=== PATIENT | female | born 1935 | race Asian ===

== ENCOUNTER 2017-09-14 16:04 | Inpatient (IN) | payer OTHER | END 2017-10-13 09:07 | disposition still patient (30) | LOC: PAVB 16:04 | PROVIDERS: ADMIT Internal Medicine ==

== ENCOUNTER 2017-09-15 06:50 | Outpatient (CLI) | payer OTHER ==
[2017-09-15 08:28] LABS: PLATELET COUNT 160 K/uL (152-353)
[2017-09-15 08:44] LABS: POTASSIUM 4.4 mmol/L (3.6-5.2)
== END 2017-09-15 22:52 | disposition home or self-care (01) ==
LOC: LAB 06:50
PROVIDERS: Internal Medicine
DX: R73.09 Other abnormal glucose (principal); R82.99 Other abnormal findings in urine; R79.89 Other specified abnormal findings of blood chemistry; D64.89 Other specified anemias; E11.9 Type 2 diabetes mellitus without complications; N39.0 Urinary tract infection, site not specified
CPT/HCPCS: 80053; 80061; 81000; 82542; 83036; 83540; 84443; 85027; 87077; 87081; 87088; 87186

== ENCOUNTER 2017-10-02 13:57 | Outpatient (CLI) | payer OTHER | END 2017-10-02 22:27 | disposition home or self-care (01) | LOC: RAD 13:57 | DX: R06.02 Shortness of breath (principal) ==

== ENCOUNTER 2017-10-05 14:46 | Outpatient (CLI) | payer OTHER ==
[2017-10-05 15:54] LABS: PLATELET COUNT 265 K/uL (152-353)
[2017-10-05 16:10] LABS: POTASSIUM 4.1 mmol/L (3.6-5.2)
== END 2017-10-05 22:52 | disposition home or self-care (01) ==
LOC: LAB 14:46
PROVIDERS: Internal Medicine
DX: I50.9 Heart failure, unspecified (principal)
CPT/HCPCS: 36415; 80053; 83880; 85027

== ENCOUNTER 2017-10-06 08:19 | Outpatient (CLI) | payer OTHER | END 2017-10-06 22:28 | disposition home or self-care (01) | LOC: LABW 08:19 | DX: E03.8 Other specified hypothyroidism (principal) | CPT/HCPCS: 84439 ==

== ENCOUNTER 2017-10-13 09:55 | Inpatient (IN) | payer OTHER ==
[2017-11-08] MEDS ORDERED: RISP0.25 PO (02:23)
[2017-11-08] MEDS ORDERED: POTASSIUM CHLO20 MEQ PO (02:25)
[2017-11-08] MEDS ORDERED: CALCIUM 600+D1 T10 PO (02:27)
[2017-11-08] MEDS ORDERED: CARV12.5 PO (02:27)
[2017-11-08] MEDS ORDERED: CULTURELL3 PO (02:29)
[2017-11-08] MEDS ORDERED: DONE5TAB PO (02:30)
[2017-11-08] MEDS ORDERED: IRON325 MG PO (02:31)
[2017-11-08] MEDS ORDERED: GLIP10TA55 PO (02:32)
[2017-11-08] MEDS ORDERED: FURO40TA93 PO (02:32)
[2017-11-08] MEDS ORDERED: ISORDIL5 MG PO (02:34)
[2017-11-08] MEDS ORDERED: KEPPRA1000 MG PO (02:54)
[2017-11-08] MEDS ORDERED: LEXAPRO20 MG PO (02:56)
[2017-11-08] MEDS ORDERED: PANTOPRAZOLE 40MG TA PO (02:57)
[2017-11-08] MEDS ORDERED: COZAAR100 MG PO (02:57)
[2017-11-08] MEDS ORDERED: ASCO500T18 PO (02:58)
[2017-11-08] MEDS ORDERED: METH5TAB6 PO (03:01)
[2017-11-08] MEDS ORDERED: MULTIVITAMI1 PO (03:02)
[2017-11-08] MEDS ORDERED: TYLENOL325 MG PO (03:05)
[2017-11-08] MEDS ORDERED: TRAM50TA PO (03:06)
[2017-11-08] MEDS ORDERED: DIAZEPAM10 M2 PO (03:09)
== END 2017-11-13 08:54 | disposition still patient (30) ==
LOC: PAVB 09:55
PROVIDERS: ADMIT Internal Medicine
CPT/HCPCS: 36415; 82947; 86850; 86900; 86901; 86922; P9016

== ENCOUNTER 2017-11-01 09:29 | Outpatient (CLI) | payer OTHER | END 2017-11-01 22:04 | disposition home or self-care (01) | LOC: RAD 09:29 | DX: R06.02 Shortness of breath (principal) ==

== ENCOUNTER 2017-11-03 14:10 | Outpatient (CLI) | payer OTHER ==
[2017-11-03 14:49] LABS: PLATELET COUNT 223 K/uL (152-353)
[2017-11-03 15:01] LABS: POTASSIUM 4.5 mmol/L (3.6-5.2)
== END 2017-11-03 18:21 | disposition home or self-care (01) ==
LOC: LAB 14:10
PROVIDERS: Internal Medicine
DX: R05 Cough (principal); R50.9 Fever, unspecified; R09.02 Hypoxemia
CPT/HCPCS: 36415; 80048; 85027

== ENCOUNTER 2017-11-04 14:26 | Observation (INO) | payer OTHER ==
[~2017-11-04] VITALS: Ht 177.8 cm; Wt 65.0 kg
[2017-11-04 17:59] VITALS: BP 122/60; TEMP 98.8; Ht 177.8 cm; Wt 65.0 kg
[2017-11-04 20:00] VITALS: BP 114/63; TEMP 99.1
[2017-11-05] VITALS: BP 135/84; TEMP 101.1
[2017-11-05 04:07] VITALS: BP 117/66; TEMP 100.8
--- NOTE | 2017-11-05 05:00 | NUR ---
11/05/17 0500 PT GIVEN SOME TYLENOL FOR INCREASED TEMP,PT EAT A CUP OF APPLE SAUCE AND DRUNK A CUP OF ICE WATER TOLERATED WELL.CC
[2017-11-05 05:51] LABS: PLATELET COUNT 231 K/uL (152-353)
[2017-11-05 06:06] LABS: POTASSIUM 4.2 mmol/L (3.6-5.2)
[2017-11-05 08:00] VITALS: BP 121/25; TEMP 99.1
[2017-11-05 12:00] VITALS: BP 130/29; TEMP 99.5
[2017-11-05 16:00] VITALS: BP 140/38; TEMP 100.5
[2017-11-05 20:00] VITALS: BP 104/60; TEMP 100.1
--- NOTE | 2017-11-05 23:11 | NUR ---
11/05/17 2300 BLOOD SUGAR 119.CC
[2017-11-06] VITALS: BP 114/65; TEMP 99.6
[2017-11-06 03:57] VITALS: BP 107/62; TEMP 99.1
[2017-11-06 05:17] LABS: PLATELET COUNT 195 K/uL (152-353)
[2017-11-06 05:32] LABS: POTASSIUM 4.1 mmol/L (3.6-5.2)
--- NOTE | 2017-11-06 06:43 | NUR ---
11/06/17 0630 PT HAS LOW BLOOD SUGAR THIS AM 53 ORANGE JUICE GIVEN ALONG WITH CAN GLUCERNA ALERT DRUNK ALL OF IT NAD NOTED.CC
[2017-11-06 08:00] VITALS: BP 123/80; TEMP 96.8
[2017-11-06 12:00] VITALS: BP 115/62; TEMP 97.5
--- NOTE | 2017-11-06 12:05 | NUR ---
REPORT GIVEN TO ISMAEL GENTILE RN AT [facility].
--- NOTE | 2017-11-06 14:15 | NUR ---
PATIENT'S IV REMOVED WITH CATHETER TIP INTACT. NO REDNESS OR SWELLING NOTED. PATIENT TOLERATED WELL. PATIENT'S BRIEF CHANGED AND COCCYX AREA CLEANED WITH SALINE AND DRESSED WITH 4X4'S AND AN ABD PAD. PATIENT TOLERATED WELL. PATIENT TRANSFERRED BACK TO [facility] VIA BED AT THIS TIME.
== END 2017-11-06 14:00 ==
LOC: MED/SURG 14:26
PROVIDERS: ADMIT Internal Medicine
DX: J20.9 Acute bronchitis, unspecified (principal); R50.9 Fever, unspecified; R05 Cough; D64.89 Other specified anemias; R13.19 Other dysphagia; F03.90 Unspecified dementia, unspecified severity, without behavioral disturbance, psychotic disturbance, mood disturbance, and anxiety; I25.10 Atherosclerotic heart disease of native coronary artery without angina pectoris; E11.9 Type 2 diabetes mellitus without complications; R09.02 Hypoxemia
CPT/HCPCS: 80053; 82948; 85027; 94640; 94664; 94760; 96365; 96366; 96367; 99220; G0378; G0379; J0696; J1956

== ENCOUNTER 2017-11-07 08:04 | Observation (INO) | payer OTHER ==
[~2017-11-07] VITALS: Ht 177.8 cm; Wt 68.7 kg
[2017-11-07 15:31] VITALS: BP 117/62; TEMP 99; Ht 177.8 cm; Wt 68.7 kg
[2017-11-07 16:00] VITALS: BP 158/78; TEMP 98.9
[2017-11-07 20:00] VITALS: BP 147/86; TEMP 98.6
[2017-11-08] VITALS: BP 170/86; TEMP 98.9
[2017-11-08] MEDS ORDERED: RISP0.25 PO (02:23)
[2017-11-08] MEDS ORDERED: POTASSIUM CHLO20 MEQ PO (02:25)
[2017-11-08] MEDS ORDERED: CALCIUM 600+D1 T10 PO (02:27)
[2017-11-08] MEDS ORDERED: CARV12.5 PO (02:27)
[2017-11-08] MEDS ORDERED: CULTURELL3 PO (02:29)
[2017-11-08] MEDS ORDERED: DONE5TAB PO (02:30)
[2017-11-08] MEDS ORDERED: IRON325 MG PO (02:31)
[2017-11-08] MEDS ORDERED: FURO40TA93 PO (02:32)
[2017-11-08] MEDS ORDERED: GLIP10TA55 PO (02:32)
[2017-11-08] MEDS ORDERED: ISORDIL5 MG PO (02:34)
[2017-11-08] MEDS ORDERED: KEPPRA1000 MG PO (02:54)
[2017-11-08] MEDS ORDERED: LEXAPRO20 MG PO (02:56)
[2017-11-08] MEDS ORDERED: PANTOPRAZOLE 40MG TA PO (02:57)
[2017-11-08] MEDS ORDERED: COZAAR100 MG PO (02:57)
[2017-11-08] MEDS ORDERED: ASCO500T18 PO (02:58)
[2017-11-08] MEDS ORDERED: METH5TAB6 PO (03:01)
[2017-11-08] MEDS ORDERED: MULTIVITAMI1 PO (03:02)
[2017-11-08] MEDS ORDERED: TYLENOL325 MG PO (03:05)
[2017-11-08] MEDS ORDERED: TRAM50TA PO (03:06)
[2017-11-08] MEDS ORDERED: DIAZEPAM10 M2 PO (03:09)
[2017-11-08 04:00] VITALS: BP 163/85; TEMP 98.1
[2017-11-08 06:18] LABS: PLATELET COUNT 234 K/uL (152-353)
[2017-11-08 08:00] VITALS: BP 158/91; TEMP 98.8
[2017-11-08 12:00] VITALS: BP 151/79; TEMP 98.7
[2017-11-08 16:00] VITALS: BP 151/92; TEMP 98.9
[2017-11-08 19:59] VITALS: BP 147/77; TEMP 98.1
--- NOTE | 2017-11-08 23:55 | NUR ---
PATIENT DISCHARGED TO [facility] IN SATISFACTORY CONDITION. LT HEEL BLISTER BURST DURING TRANSFER TO BED. REPORT GIVEN TO EKATERINA BARBER LPN. ALL QUESTIONS AND CONCERNS ADDRESSED.
== END 2017-11-08 23:55 ==
LOC: INF 08:04 → MED/SURG 11:14
PROVIDERS: ADMIT Internal Medicine
DX: E11.649 Type 2 diabetes mellitus with hypoglycemia without coma (principal); D64.89 Other specified anemias; R13.19 Other dysphagia; G30.8 Other Alzheimer's disease; F02.80 Dementia in other diseases classified elsewhere, unspecified severity, without behavioral disturbance, psychotic disturbance, mood disturbance, and anxiety; K21.9 Gastro-esophageal reflux disease without esophagitis; I25.10 Atherosclerotic heart disease of native coronary artery without angina pectoris
CPT/HCPCS: 36415; 36430; 82948; 85027; 86850; 86900; 86901; 86922; 96365; 96366; 96375; 99220; G0378; J1940; J7060; P9016

== ENCOUNTER 2017-11-09 04:56 | Outpatient (CLI) | payer OTHER ==
[~2017-11-09 04:56] MED LIST: ASCO500T18 PO; CALCIUM 600+D1 T10 PO; CARV12.5 PO; COZAAR100 MG PO; CULTURELL3 PO; DIAZEPAM10 M2 PO; DONE5TAB PO; FURO40TA93 PO; GLIP10TA55 PO; IRON325 MG PO; ISORDIL5 MG PO; KEPPRA1000 MG PO; LEXAPRO20 MG PO; METH5TAB6 PO; MULTIVITAMI1 PO; PANTOPRAZOLE 40MG TA PO; POTASSIUM CHLO20 MEQ PO; RISP0.25 PO; TRAM50TA PO; TYLENOL325 MG PO
== END 2017-11-09 19:11 | disposition home or self-care (01) ==
LOC: LABW 04:56
DX: E05.80 Other thyrotoxicosis without thyrotoxic crisis or storm (principal)
CPT/HCPCS: 84439; 84443; 85014; 85018

== ENCOUNTER 2017-11-12 07:34 | Day surgery (SDC) | payer OTHER | END 2017-11-12 10:45 | LOC: OR 07:34 | PROC: 0DH63UZ Insertion of Feeding Device into Stomach, Percutaneous Approach (ICD-10-PCS; principal; 2017-11-12) | PROC: 0DB68ZZ Excision of Stomach, Via Natural or Artificial Opening Endoscopic (ICD-10-PCS; 2017-11-12) | DX: R13.19 Other dysphagia (principal); R63.4 Abnormal weight loss; T17.900A Unspecified foreign body in respiratory tract, part unspecified causing asphyxiation, initial encounter; D64.9 Anemia, unspecified; F03.90 Unspecified dementia, unspecified severity, without behavioral disturbance, psychotic disturbance, mood disturbance, and anxiety | CPT/HCPCS: J2001; J2704 ==

== ENCOUNTER 2017-11-13 09:42 | Inpatient (IN) | payer OTHER ==
[2017-11-21 08:03] LABS: POTASSIUM 4.9 mmol/L (3.6-5.2)
== END 2017-12-13 14:21 | disposition still patient (30) ==
LOC: PAVB 09:42
PROVIDERS: ADMIT Internal Medicine
CPT/HCPCS: 80048

== ENCOUNTER 2017-11-17 06:15 | Outpatient (CLI) | payer OTHER | END 2017-11-17 22:17 | disposition home or self-care (01) | LOC: LAB 06:15 | PROVIDERS: Internal Medicine | DX: F03.91 Unspecified dementia, unspecified severity, with behavioral disturbance (principal); E78.4 Other hyperlipidemia | CPT/HCPCS: 82465; 83721; 84436; 84480 ==

== ENCOUNTER 2017-11-18 03:04 | Outpatient (CLI) | payer OTHER | END 2017-11-18 21:39 | disposition home or self-care (01) | LOC: LAB 03:04 | DX: K94.22 Gastrostomy infection (principal) | CPT/HCPCS: 87070; 87077; 87186; 87205 ==

== ENCOUNTER 2017-11-21 10:09 | Outpatient (CLI) | payer OTHER | END 2017-11-21 16:00 | disposition home or self-care (01) | LOC: LAB 10:09 | DX: E87.1 Hypo-osmolality and hyponatremia (principal) | CPT/HCPCS: 80048 ==

== ENCOUNTER 2017-11-22 10:46 | Outpatient (CLI) | payer OTHER | END 2017-11-22 19:11 | disposition home or self-care (01) | LOC: RAD 10:46 | DX: R05 Cough (principal); Z43.1 Encounter for attention to gastrostomy ==

== ENCOUNTER 2017-12-13 15:00 | Inpatient (IN) | payer OTHER | END 2018-01-13 08:00 | disposition still patient (30) | LOC: PAVB 15:00 | PROVIDERS: ADMIT Internal Medicine ==

== ENCOUNTER 2017-12-14 11:50 | Inpatient (IN) | payer OTHER ==
[~2017-12-14] VITALS: Ht 177.8 cm; Wt 61.7 kg
[2017-12-14 12:31] LABS: PLATELET COUNT 135 K/uL (152-353)
[2017-12-14 13:01] LABS: POTASSIUM 6.9 mmol/L (3.6-5.2)
[2017-12-14 17:42] VITALS: BP 93/63; TEMP 98; Ht 177.8 cm; Wt 61.7 kg
[2017-12-14 20:00] VITALS: BP 115/70; TEMP 98
[2017-12-15] VITALS (7 sets, daily range): BP systolic 111–134; BP diastolic 70–76; TEMP 97.9–98.5
[2017-12-15 10:25] LABS: POTASSIUM 5.6 mmol/L (3.6-5.2)
[2017-12-16 04:00] VITALS: BP 149/76; TEMP 98.1
[2017-12-16 05:30] LABS: POTASSIUM 5.2 mmol/L (3.6-5.2)
[2017-12-16 08:00] VITALS: BP 148/79; TEMP 98.9
[2017-12-16 12:00] VITALS: BP 130/76; TEMP 98.3
[2017-12-16 16:00] VITALS: BP 154/81; TEMP 98.6
[2017-12-16 20:00] VITALS: BP 152/75; TEMP 99.3
[2017-12-17] VITALS: BP 163/85; TEMP 98.7
[2017-12-17 04:00] VITALS: BP 154/77; TEMP 99.3
[2017-12-17 06:07] LABS: POTASSIUM 3.9 mmol/L (3.6-5.2)
[2017-12-17 08:00] VITALS: BP 179/77; TEMP 98.2
[2017-12-17 12:00] VITALS: BP 153/82; TEMP 98.6
[2017-12-17 16:00] VITALS: BP 140/70; TEMP 98.8
[2017-12-17 20:00] VITALS: BP 166/85; TEMP 97.8
[2017-12-18] VITALS: BP 150/82; TEMP 99
[2017-12-18 04:00] VITALS: BP 150/88; TEMP 99.3
[2017-12-18 08:00] VITALS: BP 149/86; TEMP 97.8
[2017-12-18 12:00] VITALS: BP 149/79; TEMP 99.6
== END 2017-12-18 11:12 | DRG 638 ==
LOC: LAB 11:50 → MED/SURG 16:15 → UNDODEPCLI 12-15 19:46 → MED/SURG 12-18 11:12
PROVIDERS: ADMIT Internal Medicine
DX: E13.649 Other specified diabetes mellitus with hypoglycemia without coma (principal); E87.0 Hyperosmolality and hypernatremia; E86.9 Volume depletion, unspecified; E87.5 Hyperkalemia; E87.8 Other disorders of electrolyte and fluid balance, not elsewhere classified; I95.89 Other hypotension; G30.8 Other Alzheimer's disease; F02.80 Dementia in other diseases classified elsewhere, unspecified severity, without behavioral disturbance, psychotic disturbance, mood disturbance, and anxiety; E05.80 Other thyrotoxicosis without thyrotoxic crisis or storm
CPT/HCPCS: 36415; 80048; 80053; 84443; 85027; J3490

== ENCOUNTER 2017-12-21 12:25 | Outpatient (CLI) | payer OTHER ==
[2017-12-21 12:57] LABS: POTASSIUM 3.8 mmol/L (3.6-5.2)
== END 2017-12-21 20:26 | disposition home or self-care (01) ==
LOC: LAB 12:25
PROVIDERS: Internal Medicine
DX: E86.0 Dehydration (principal)
CPT/HCPCS: 80048

== ENCOUNTER 2017-12-24 07:28 | Day surgery (SDC) | payer OTHER ==
[2017-12-24 08:45] LABS: PLATELET COUNT 136 K/uL (152-353)
[2017-12-24 08:46] LABS: POTASSIUM 3.2 mmol/L (3.6-5.2)
== END 2017-12-24 10:00 | disposition home or self-care (01) ==
LOC: OR 07:28
PROVIDERS: Internal Medicine
PROC: 0DH63UZ Insertion of Feeding Device into Stomach, Percutaneous Approach (ICD-10-PCS; principal; 2017-12-24)
DX: K44.9 Diaphragmatic hernia without obstruction or gangrene (principal); R13.19 Other dysphagia; R63.4 Abnormal weight loss; E63.8 Other specified nutritional deficiencies; G30.8 Other Alzheimer's disease; F02.80 Dementia in other diseases classified elsewhere, unspecified severity, without behavioral disturbance, psychotic disturbance, mood disturbance, and anxiety
CPT/HCPCS: 80053; 85027; J2001; J2704

== ENCOUNTER 2017-12-25 12:54 | Outpatient (CLI) | payer OTHER | END 2017-12-25 22:05 | disposition home or self-care (01) | LOC: LAB 12:54 | DX: E87.5 Hyperkalemia (principal) | CPT/HCPCS: 83735 ==

== ENCOUNTER 2017-12-29 21:11 | Outpatient (CLI) | payer OTHER | END 2017-12-29 23:53 | disposition home or self-care (01) | LOC: RAD 21:11 | DX: R05 Cough (principal) ==

== ENCOUNTER 2017-12-30 11:46 | Outpatient (CLI) | payer OTHER | END 2017-12-30 22:41 | disposition home or self-care (01) | LOC: LAB 11:46 | DX: K94.23 Gastrostomy malfunction (principal) | CPT/HCPCS: 87070; 87077; 87185; 87186; 87205 ==

== ENCOUNTER 2018-01-01 06:26 | Outpatient (CLI) | payer OTHER ==
[2018-01-01 06:44] LABS: POTASSIUM 5.2 mmol/L (3.6-5.2)
== END 2018-01-01 22:26 | disposition home or self-care (01) ==
LOC: LAB 06:26
PROVIDERS: Internal Medicine
DX: E87.6 Hypokalemia (principal); E83.42 Hypomagnesemia
CPT/HCPCS: 36415; 80048; 83735

== ENCOUNTER 2018-01-13 09:00 | Inpatient (IN) | payer OTHER ==
[2018-01-31] MEDS ORDERED: PROTEINE1 PO (03:18)
[2018-01-31] MEDS ORDERED: METF100038 PO (03:20)
[2018-01-31] MEDS ORDERED: JUVE1 PO (03:22)
[2018-01-31] MEDS ORDERED: CELEXA20 MG PO (03:23)
[2018-01-31] MEDS ORDERED: MAG OXIDE400 M2 PO (03:24)
[2018-01-31] MEDS ORDERED: MEGESTROL AC PO (03:26)
[2018-01-31] MEDS ORDERED: HYDR5TAB9 PO (03:27)
[2018-01-31] MEDS ORDERED: ALBUSOL IN (03:29)
[2018-01-31] MEDS ORDERED: ROBITUSS10 PO (03:31)
[2018-01-31] MEDS ORDERED: DAKINS 0.125% EX (03:33)
== END 2018-02-03 15:45 | disposition expired ==
LOC: PAVB 09:00
PROVIDERS: ADMIT Internal Medicine

== ENCOUNTER 2018-01-19 12:47 | Day surgery (SDC) | payer OTHER | END 2018-01-19 14:40 | LOC: OR 12:47 | PROC: 0DB68ZX Excision of Stomach, Via Natural or Artificial Opening Endoscopic, Diagnostic (ICD-10-PCS; principal; 2018-01-19) | PROC: 0DP64UZ Removal of Feeding Device from Stomach, Percutaneous Endoscopic Approach (ICD-10-PCS; 2018-01-19) | DX: K94.20 Gastrostomy complication, unspecified (principal) | CPT/HCPCS: J2001; J2704 ==

== ENCOUNTER 2018-01-30 15:00 | Inpatient (IN) | payer OTHER ==
[~2018-01-30] VITALS: Ht 177.8 cm; Wt 62.1 kg
[2018-01-30 15:17] LABS: PLATELET COUNT 97 K/uL (152-353)
[2018-01-30 19:00] VITALS: BP 117/76
[2018-01-30 20:00] VITALS: BP 123/76; TEMP 98.3
[2018-01-30 21:00] VITALS: BP 117/81
[2018-01-30 22:00] VITALS: BP 107/69
[2018-01-30 23:00] VITALS: BP 120/75
[2018-01-30 23:03] VITALS: BP 120/72; TEMP 98.3; Ht 177.8 cm; Wt 62.1 kg
[2018-01-31] VITALS (24 sets, daily range): BP systolic 107–153; BP diastolic 64–88; TEMP 97.8–99.1
[2018-01-31] MEDS ORDERED: PROTEINE1 PO (03:18)
[2018-01-31] MEDS ORDERED: METF100038 PO (03:20)
[2018-01-31] MEDS ORDERED: JUVE1 PO (03:22)
[2018-01-31] MEDS ORDERED: CELEXA20 MG PO (03:23)
[2018-01-31] MEDS ORDERED: MAG OXIDE400 M2 PO (03:24)
[2018-01-31] MEDS ORDERED: MEGESTROL AC PO (03:26)
[2018-01-31] MEDS ORDERED: HYDR5TAB9 PO (03:27)
[2018-01-31] MEDS ORDERED: ALBUSOL IN (03:29)
[2018-01-31] MEDS ORDERED: ROBITUSS10 PO (03:31)
[2018-01-31] MEDS ORDERED: DAKINS 0.125% EX (03:33)
[2018-01-31 05:38] LABS: PLATELET COUNT 99 K/uL (152-353)
[2018-01-31 06:46] LABS: POTASSIUM 6.1 mmol/L (3.6-5.2)
[2018-02-01] VITALS (24 sets, daily range): BP systolic 97–177; BP diastolic 69–94; TEMP 97.8–99.1
[2018-02-01 05:32] LABS: PLATELET COUNT 79 K/uL (152-353)
[2018-02-01 05:33] LABS: POTASSIUM 3.9 mmol/L (3.6-5.2)
[2018-02-02] VITALS (25 sets, daily range): BP systolic 80–188; BP diastolic 58–99; TEMP 97–99.3
[2018-02-03] VITALS (15 sets, daily range): BP systolic 80–114; BP diastolic 40–78; TEMP 99–101
[2018-02-03 06:26] LABS: PLATELET COUNT 88 K/uL (152-353)
== END 2018-02-03 17:35 | disposition expired | DRG 193 ==
LOC: LAB 15:00 → ICU 18:50
PROVIDERS: ADMIT Internal Medicine
PROC: 5A12012 Performance of Cardiac Output, Single, Manual (ICD-10-PCS; principal; 2018-02-03)
PROC: 0BH17EZ Insertion of Endotracheal Airway into Trachea, Via Natural or Artificial Opening (ICD-10-PCS; 2018-02-03)
DX: J18.8 Other pneumonia, unspecified organism (principal); G93.49 Other encephalopathy; N39.0 Urinary tract infection, site not specified; E87.8 Other disorders of electrolyte and fluid balance, not elsewhere classified; I25.10 Atherosclerotic heart disease of native coronary artery without angina pectoris; E11.9 Type 2 diabetes mellitus without complications; E03.8 Other specified hypothyroidism; G30.8 Other Alzheimer's disease; F02.80 Dementia in other diseases classified elsewhere, unspecified severity, without behavioral disturbance, psychotic disturbance, mood disturbance, and anxiety; R41.82 Altered mental status, unspecified; I10 Essential (primary) hypertension; Z86.73 Personal history of transient ischemic attack (TIA), and cerebral infarction without residual deficits; B96.4 Proteus (mirabilis) (morganii) as the cause of diseases classified elsewhere
CPT/HCPCS: 36415; 80048; 80053; 81000; 82550; 82962; 83605; 84484; 85027; 87040; 87077; 87086; 87088; 87186; 92950; 93005; 94640; 94664; 94760; J0171; J0461; J0696; J1953; J1956; J3490